=== PATIENT | male | born 1985 ===

== ENCOUNTER 2017-06-03 05:49 | Emergency (ER) | payer OTHER ==
--- NOTE | 2017-06-03 06:07 | EDM.PDOC ---
ED HPI GENERAL MEDICAL PROBLEM - General Chief Complaint: Lower Extremity Injury/Pain Stated Complaint: right ankle pain Time Seen by Provider: 06/03/17 06:00 Source of Information: Reports: Patient History Limitations: Reports: No Limitations - History of Present Illness INITIAL COMMENTS - FREE TEXT/NARRATIVE: Patient is a 31-year-old male who was seen in the emergency with chief complaint of right ankle pain patient states that he was working with a heavy equipment machine when he came out of the machine went down as he was coming down he twisted his ankle he denies any other injuries at this time Onset: Today, Sudden Duration: Minutes:, Constant Location: Reports: Lower Extremity, Right Quality: Reports: Sharp Severity: Moderate Improves with: Reports: Rest Worsens with: Reports: Other (Weightbearing), Movement Associated Symptoms: Reports: No Other Symptoms - Related Data Allergies Allergy/AdvReac Type Severity Reaction Status Date / Time No Known Allergies Allergy Verified 06/03/17 05:56 Home Meds: Home Meds Multivitamin [Daily Multiple Vitamin] 1 tab PO DAILY 06/03/17 [History] Review of Systems - Review of Systems Review Of Systems: See Below Constitutional: Reports: No Symptoms Eyes: Reports: No Symptoms Ears: Reports: No Symptoms Nose: Reports: No Symptoms Mouth/Throat: Reports: No Symptoms Respiratory: Reports: No Symptoms Cardiovascular: Reports: No Symptoms GI/Abdominal: Reports: No Symptoms Genitourinary: Reports: No Symptoms Musculoskeletal: Reports: Joint Pain (Ankle) Skin: Reports: No Symptoms Neurological: Reports: No Symptoms Psychiatric: Reports: No Symptoms ED EXAM, GENERAL - Physical Exam Exam: See Below Exam Limited By: No Limitations General Appearance: Alert, WD/WN, No Apparent Distress Ears: Normal External Exam, Normal Canal, Hearing Grossly Normal, Normal TMs Ear Exam: Bilateral Ear: Auricle Normal, Canal Normal, TM normal Nose: Normal Inspection, Normal Mucosa, No Blood Throat/Mouth: Normal Inspection, Normal Lips, Normal Teeth, Normal Gums, Normal Oropharynx, Normal Voice, No Airway Compromise Head: Atraumatic, Normocephalic Neck: Normal Inspection, Supple, Non-Tender, Full Range of Motion Respiratory/Chest: No Respiratory Distress, Lungs Clear, Normal Breath Sounds, No Accessory Muscle Use, Chest Non-Tender Cardiovascular: Normal Peripheral Pulses, Regular Rate, Rhythm, No Edema, No Gallop, No JVD, No Murmur, No Rub GI/Abdominal: Normal Bowel Sounds, Soft, Non-Tender, No Organomegaly, No Distention, No Abnormal Bruit, No Mass (Male) Exam: No Hernia, Normal Inspection, Normal Prostate, Circumcised Rectal (Males) Exam: Normal Exam, Normal Rectal Tone, Prostate Normal Back Exam: Normal Inspection, Full Range of Motion, NT Extremities: Arm Pain, Limited Range of Motion (Right ankle), Other (With pain to minimal movement) Neurological: Alert, Oriented, CN II-XII Intact, Normal Cognition, Normal Gait, Normal Reflexes, No Motor/Sensory Deficits Psychiatric: Normal Affect, Normal Mood Skin Exam: Warm, Dry, Intact, Normal Color, No Rash Lymphatic: No Adenopathy Course - Orders/Labs/Meds Orders: Active Orders 24 hr Category Date Time Status Ankle 2V Rt [CR] Stat Exams 06/03/17 05:57 Ordered - Radiology Interpretation Free Text/Narrative:: Right ankle x-ray 3 views done revealed no fracture at this point Departure - Departure Time of Disposition: 06:27 Disposition: Home, Self-Care 01 Condition: Fair Clinical Impression: Right ankle sprain Qualifiers: Encounter type: initial encounter Involved ligament of ankle: unspecified ligament Qualified Code(s): S93.401A - Sprain of unspecified ligament of right ankle, initial encounter - Discharge Information Instructions: Ankle Sprain, Rlsr-on-Ytel Care Plan Goals: Patient will be placed on a Cam Walker patient is to apply ice ice 20 minutes on and 20 minutes off for the next 2 days he is to follow-up with primary physician if unable to obtain an appointment please call [facility] at and make him an appointment with Jem Aquino or Sofya for follow-up appointment in about a week patient is to take Motrin 600 mg 1 tablet every 6 hours for pain or 3 tablets of Motrin 200 every 6 hours for pain - My Orders Last 24 Hours: My Active Orders 06/03/17 05:57 Ankle 2V Rt [CR] Stat - Assessment/Plan Last 24 Hours: My Active Orders 06/03/17 05:57 Ankle 2V Rt [CR] Stat
== END 2017-06-03 07:00 | disposition home or self-care (01) ==
LOC: LL.ED 05:49
DX: S93.401A Sprain of unspecified ligament of right ankle, initial encounter (principal); Y99.0 Civilian activity done for income or pay; X50.9XXA Other and unspecified overexertion or strenuous movements or postures, initial encounter; Z79.899 Other long term (current) drug therapy
CPT/HCPCS: 73600-RT; 99283